=== PATIENT | female | born 1945 | race African-American/Black ===

== ENCOUNTER 2023-10-29 22:56 | Emergency (ER) | payer MEDICARE ==
[2023-10-29 23:10] VITALS: PULSE 86; RESP 16; O2SAT 98
== END 2023-10-30 00:25 | disposition left against medical advice (07) ==
LOC: ER 22:56
DX: I10 Essential (primary) hypertension (principal); Z53.21 Procedure and treatment not carried out due to patient leaving prior to being seen by health care provider